=== PATIENT | female | born 1950 | race Caucasian/White ===

== ENCOUNTER 2016-04-13 05:47 | Day surgery (SDC) | payer BC ==
[2016-04-12 09:41] VITALS: BMI 23.6
[2016-04-13] VITALS (11 sets, daily range): BP systolic 104–124; BP diastolic 59–68; PULSE 55–67; RESP 10–20; Ht 170.2 cm; Wt 68.9 kg
[~2016-04-13] VITALS: Ht 170.2 cm; Wt 68.9 kg
[2016-04-13] MEDS ORDERED: LACTATED RINGER'S 1,000 ML IV SCH (06:00)
[2016-04-13] MEDS ORDERED: BUPIVACAINE 0.5% (SDV) 30 ML INJ ONE (06:24)
[2016-04-13] MEDS ORDERED: DEXAMETHASONE 4 MG/ML 1 ML INJ ONE ×2 (06:25→07:32)
[2016-04-13] MEDS ORDERED: ACETAMINOPHEN 1000 MG/100 ML IVPB ONE (07:00)
--- NOTE | 2016-04-13 07:14 | HPN ---
Date/Time of Note Date/Time of Note DATE: 04/13/16 TIME: 07:14 Interval H&P Admission Note Pt. seen H&P reviewed: No system changes SILVER HARRIS DPM Apr 13, 2016 07:14
[2016-04-13] MEDS ORDERED: LIDOCAINE 2% (SDV) 5 ML INJ ONE (07:18)
[2016-04-13] MEDS ORDERED: PROPOFOL 20 ML ONE (07:18)
[2016-04-13] MEDS ORDERED: MIDAZOLAM 1 MG/ML 2 ML INJ ONE (07:19)
[2016-04-13] MEDS ORDERED: FENTAnyl 50 MCG/ML VIAL ONE (07:19)
[2016-04-13] MEDS ORDERED: BUPIVACAINE 0.5% (MPF) 30 ML INJ INJ ONE (07:30)
[2016-04-13] MEDS ORDERED: CLINDAMYCIN 600 MG/D5W (PMX) 50 ML IVPB SCH (07:30)
[2016-04-13] MEDS ORDERED: ONDANSETRON 4 MG INJ ONE (07:32)
[2016-04-13] MEDS ORDERED: oxyCODONE 5 MG TAB PO PRN (08:00)
[2016-04-13] MEDS ORDERED: DIPHENHYDRAMINE 50 MG INJ IV PRN (08:00)
[2016-04-13] MEDS ORDERED: MEPERIDINE 25 MG INJ IV PRN (08:00)
[2016-04-13] MEDS ORDERED: ONDANSETRON 4 MG INJ IV PRN (08:00)
[2016-04-13] MEDS ORDERED: FENTAnyl 50 MCG/ML VIAL IV PRN (08:00)
[2016-04-13] MEDS ORDERED: HYDROmorphONE (0.2 MG/ML) 10ML SYG IV PRN ×2 (08:00)
[2016-04-13] MEDS ORDERED: PROCHLORPERAZINE 10 MG INJ IV PRN (08:00)
[2016-04-13] MEDS ORDERED: METOCLOPRAMIDE 10 MG INJ IV PRN (08:00)
[2016-04-13] MEDS ORDERED: KETOROLAC 30 MG INJ ONE (08:28)
[2016-04-13] MEDS ORDERED: TRIAMCINOLONE ACET 40 MG/ML INJ ONE (08:32)
[2016-04-13] MEDS ORDERED: TRIAMCINOLONE ACET 40 MG/ML INJ INJ ONE (08:36)
--- NOTE | 2016-04-13 09:23 | RADRPT ---
PROCEDURE: XR Left foot. CLINICAL INDICATION: Left foot pain, postoperative evaluation TECHNIQUE: Three views of the left foot were obtained. COMPARISON: No prior studies are available for comparison. FINDINGS: There is a screw at the first metatarsal neck. There is severe first metatarsophalangeal joint oste oarthrosis with surrounding soft tissue swelling and some chronic-appearing bone fragmentation. Alignment is normal. Remaining joint spaces are preserved. Soft tissues are otherwise unremarkable. IMPRESSION: 1. Orthopedic screw at the first metatarsal neck with severe first metatarsophalangeal joint osteoar throsis and surrounding soft tissue swelling/chronic bone fragmentation. RPTAT: UU .Steven Escalona MD, MD Date Time Electronically viewed and signed by .Steven Escalona MD, on 04/13/2016 09:22 .K/
--- NOTE | 2016-04-13 12:07 | OPR ---
DATE OF OPERATION: 04/13/2016 PREOPERATIVE DIAGNOSIS: Left foot bunionectomy. POSTOPERATIVE DIAGNOSIS: Left foot bunionectomy. 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 PROCEDURE PERFORMED: SURGEON: Silver Walker MD ANESTHESIA: General. OPERATION: The patient was brought in the OR and the left foot and ankle was injected with approxim ately 7 mL of 0.5% plain Marcaine circumferentially around the first metatarsophalangeal joint. Aft er anesthesia was achieved, the area was prepped and draped in the usual sterile fashion. A tourniq uet had been applied around the ankle. The foot and ankle were exsanguinated with an Esmarch bandag e and the tourniquet was inflated to approximately 250 mmHg. Attention was then directed to the medial aspect of the first metatarsophalangeal joint region. Uti lizing a #15 blade, an approximately 5 cm incision was performed over the area. Care was taken to r etract any nervous tissue and to ligate any bleeding vessels. Sharp and blunt dissection were achie luisito down to the capsular region. Utilizing a #15 blade, a linear capsulotomy was performed. The ca psular tissue was then distracted both dorsally and plantarly. The bunion was in clear view. Utili zing the sagittal saw, the bunion deformity was removed in toto. In addition, a small amount of bon e spurring was removed from the base of the proximal phalanx. Utilizing Martinez elevator, the periostea l tissue was debrided down and an exostosis was noted at the dorsal aspect of the first metatarsal. Utilizing a sagittal saw, the exostosis dorsally was removed in toto. At this point, a classical l ateral capsulotomy was performed with a #15 blade. The area was copiously lavaged with antibiotic s olution. Attention was once again directed to the medial aspect where a modified Chevron osteotomy was performed with a sagittal saw. Care was taken to distract and then impact the capital fragment more laterally. The remaining ledge was rasped smooth. A K wire was then utilized from dorsal to p lantar perpendicular to the osteotomy dorsally. The area was then utilizing the [employer] cannulated screw system. The area was countersunk. The area was then drilled at the most near co rtex. The area was then measured, and it was chosen that a 3.0 cannulated #14 screw would be utiliz ed. The screw was then placed over the K wire and was compressed into the bone with excellent compr ession, alignment and approximation of the joint space. The K wire was then removed. There was exc ellent range of motion as well as excellent alignment and approximation. The area was copiously lav aged once again with antibiotic solution. A capsulorrhaphy was then performed and the redundant capsular tissue was removed. The capsule was then coapted utilizing 2-0 and 3-0 Vicryl sutures. The subcutaneous tissue was coapted with 3-0 Herbert ryl suture and the skin with a running stitch of 3-0 nylon. There was excellent movement with no en cumbrances on the joint. The area was then injected with approximately 7 mL of 0.5% plain Marcaine. Also, 1 mL of Kenalog was utilized around the joint region. A dressing of Steri-Strips, 4 x 4's, rolled gauze, Coban and an Connor wrap or elastic wrap were then utilized. The toe was positioned for excellent approximation in alignment. The tourniquet was released and normoactive hyperemia was not ed to all the digits of the left foot. This patient tolerated the procedure well and left the room in stable condition. Dictated By: SILVER TITUS/FRANCIE Conf#: [id number] DID#: [id number]
[2016-04-13] MEDS ORDERED: ONDANSETRON (ODT) 4 MG TAB ODT PRN (15:00)
[2016-04-13] MEDS ORDERED: HYDROCODONE/APAP (10/325) TAB PO PRN (15:00)
== END 2016-04-13 11:52 | disposition home or self-care (01) ==
LOC: SDS 05:47
PROVIDERS: ATTEND Podiatrist Foot & Ankle Surgery
DX: M20.12 Hallux valgus (acquired), left foot (principal); M21.612 Bunion of left foot; Z88.0 Allergy status to penicillin
CPT/HCPCS: 28296; 73630; C1713; J0131; J1100; J1885; J2250; J2405; J3010; J3301